=== PATIENT | female | born 1950 | race Hispanic/Latino ===

== ENCOUNTER 2018-12-03 18:55 | Emergency (ER) | payer OTHER ==
[~2018-12-03] VITALS: Ht 154.9 cm; Wt 72.6 kg
--- NOTE | 2018-12-03 20:43 | Diagnostic Imaging Report ---
KNEE 2 VIEW LT - HOPD - 2 views HISTORY: Pain COMPARISON: None available. FINDINGS: Generalized mineralization. Nondisplaced fracture of the mid patella. Small to moderate size suprapatellar joint effusion. Tricompartmental degenerative changes, most severe in the medial compartment. IMPRESSION: Nondisplaced fracture of the mid patella. Small to moderate size suprapatellar joint effusion. Signed by: Dr. Andre Almeida MD on 12/03/2018 8:40 PM
[2018-12-03] MEDS ORDERED: HYDROCODONE/APAP 5MG-325MG TAB PO ONE (21:15)
[2018-12-03 21:21] VITALS: BP 154/77
== END 2018-12-03 21:23 | disposition home or self-care (01) ==
LOC: FSED 18:55
DX: S82.035A Nondisplaced transverse fracture of left patella, initial encounter for closed fracture (principal); W01.0XXA Fall on same level from slipping, tripping and stumbling without subsequent striking against object, initial encounter; Y93.01 Activity, walking, marching and hiking; Y92.512 Supermarket, store or market as the place of occurrence of the external cause
CPT/HCPCS: 99283